=== PATIENT | female | born 2005 | race African-American/Black ===

== ENCOUNTER 2025-06-29 19:53 | Emergency (ER) | payer OTHER, SELFPAY ==
[2025-06-29] MEDS ORDERED: Ibuprofen 200 MG TAB ONE (20:27)
== END 2025-06-29 21:45 | disposition home or self-care (01) ==
LOC: NAV ERS 19:53
DX: J10.1 Influenza due to other identified influenza virus with other respiratory manifestations (principal)
CPT/HCPCS: 87081; 87428; 87430; J7030